=== PATIENT | male | born 1940 | race Caucasian/White ===

== ENCOUNTER 2017-04-03 20:09 | Inpatient (IN) | payer OTHER, BC ==
[~2017-04-03] VITALS: Ht 167.6 cm; Wt 73.5 kg
[~2017-04-03 20:09] MED LIST: ALENDRONATE SOD70 MG PO; ALTACE10 MG PO; ALTACE2.5 MG PO; ASPIR 8181 M1 PO; ASPIRIN81 M2 PO; CALCIUM 500 MG1 EACH PO; FORTAMET500 MG PO; I-CAPS WITH LU1 EACH PO; IRON CHEWS15 MG PO; LIPITOR80 MG PO; METFORMIN HCL500 MG PO; METOPROLOL SUCC25 MG PO; NITROSTAT0.4 MG SL; PANTOPRAZOLE SO40 MG PO; PLAVIX75 MG PO; PROTONIX IV40 MG IV; RAMIPRIL5 MG PO; RECLAST5 MG/100 M IV; TOPROL XL50 MG PO; VICODIN,LORT1 TABLET PO; VITAMIN D-3 401 EACH PO; ZETIA10 MG PO
[2017-04-03 21:18] LABS: MCH 30.2 PG (29.0-34.0); MCHC 32.1 G/DL (30.0-36.0); MCV 94.1 FL (86-99); MEAN PLAT.VOLUME 10.5 uM^3 (9.0-12.4); PLATELET COUNT 206 K/uL (156-360); RBC DIS.WIDTH-SD 51.8 % (39-53); RED BLOOD COUNT 4.57 M/uL (4.00-5.50); WHITE BLOOD COUNT 10.2 K/uL (4.1-10.2)
[2017-04-03 21:25] LABS: CHLORIDE 106 mEq/L (99-109); POTASSIUM 4.3 mEq/L (3.7-5.4); SODIUM 141 mEq/L (136-147)
[2017-04-03 21:26] LABS: GLUCOSE 208 mg/dL (70-99)
[2017-04-03 21:28] LABS: ANION GAP 14 MEQ/L (2-14)
[2017-04-03 21:30] LABS: GFR ESTIMATE (CALCULATED) 48 mL/min/
[2017-04-03 21:31] LABS: UREA NITROGEN (BUN) 35 mg/dL (9-23)
[2017-04-03 21:36] LABS: TROP-I INTERPRETATION NEGATIVE; TROPONIN-I 0.07 ng/mL (0.0-0.30)
[2017-04-03] MEDS ORDERED: BENADRYL ALLERG25 MG PO (22:11)
[2017-04-03 23:59] LABS: MAGNESIUM 1.3 mg/dL (1.3-2.7)
[2017-04-04] VITALS (7 sets, daily range): BP systolic 89–122; BP diastolic 61–86
[2017-04-04 02:13] LABS: PROTHROMBIN TIME 10.4 (9.2-11.2); PTT 24.3 (25-32)
[2017-04-04 02:48] LABS: HDL CHOLESTEROL 35 MG/DL (Desirable>=40); LDL CHOLESTEROL 76 mg/dL (Desirable<100); NON-HDL CHOLESTEROL 115 mg/dL (Desirable<160); TOTAL CHOLESTEROL 150 mg/dL (Desirable<200); TRIGLYCERIDES 196 MG/DL (Normal: <150)
[2017-04-04 05:45] LABS: TROP-I INTERPRETATION POSITIVE; TROPONIN-I 3.46 ng/mL (0.0-0.30)
[2017-04-04 05:55] LABS: HEMATOCRIT 39.4 % (38.0-50.0); MCH 30.8 PG (29.0-34.0); MCV 96.3 FL (86-99); MEAN PLAT.VOLUME 11.1 uM^3 (9.0-12.4); PLATELET COUNT 175 K/uL (156-360); RBC DIS.WIDTH-CV 15.2 % (11.8-14.6); RBC DIS.WIDTH-SD 54.2 % (39-53); RED BLOOD COUNT 4.09 M/uL (4.00-5.50); WHITE BLOOD COUNT 8.7 K/uL (4.1-10.2)
[2017-04-04 06:44] LABS: METH RESISTANT S AUREUS PCR NEGATIVE (NEGATIVE)
[2017-04-04 06:46] LABS: PROBE CHECK PASS; SPECIMEN PROCESSING CONTROL PASS
[2017-04-04 08:17] LABS: ALKALINE PHOSPHATASE 70 IU/L (3-129); ANION GAP 14 MEQ/L (2-14); CHLORIDE 108 MEQ/L (99-109); GFR ESTIMATE (CALCULATED) > 59 mL/min/; MAGNESIUM 1.3 mg/dl (1.3-2.7); POTASSIUM 4.6 MEQ/L (3.7-5.4); SAMPLE HEMOLYSIS CHECK 0; SAMPLE ICTERIC CHECK 0; SAMPLE LIPEMIA CHECK 0; SODIUM 142 MEQ/L (136-147); TOTAL BILIRUBIN 0.7 MG/DL (0.0-1.0); UREA NITROGEN (BUN) 33 mg/dL (9-23)
[2017-04-04 08:20] LABS: GLUCOSE 98 mg/dL (70-99)
[2017-04-04 13:49] LABS: TROP-I INTERPRETATION POSITIVE; TROPONIN-I 4.93 ng/mL (0.0-0.30)
[2017-04-04 19:09] LABS: TROP-I INTERPRETATION POSITIVE; TROPONIN-I 4.04 ng/mL (0.0-0.30)
[2017-04-05] VITALS (8 sets, daily range): BP systolic 100–127; BP diastolic 49–71
[2017-04-05 06:57] LABS: EOSINOPHIL (%) 0.1 % (0-5); HEMATOCRIT 38.6 % (38.0-50.0); IMMATURE GRANULOCYTE (%) 0.3 % (0.0-0.7); INSTRUMENT ABS NEUTROPHIL CT 6.6 K/uL; LYMPHOCYTE COUNT 0.6 K/uL (1.0-2.8); MCHC 31.3 G/DL (30.0-36.0); MCV 95.5 FL (86-99); MEAN PLAT.VOLUME 11.2 uM^3 (9.0-12.4); MONOCYTE (%) 2.7 % (3-12); MONOCYTE COUNT 0.2 K/uL (0-0.8); NEUTROPHIL (%) 88.3 % (45-76); NEUTROPHIL COUNT 6.6 K/uL (1.8-6.4); PLATELET COUNT 162 K/uL (156-360); RBC DIS.WIDTH-CV 14.5 % (11.8-14.6); RBC DIS.WIDTH-SD 50.6 % (39-53); RED BLOOD COUNT 4.04 M/uL (4.00-5.50); WHITE BLOOD COUNT 7.5 K/uL (4.1-10.2)
[2017-04-05 08:27] LABS: ANION GAP 11 MEQ/L (2-14); CHLORIDE 104 MEQ/L (99-109); GFR ESTIMATE (CALCULATED) 57 mL/min/; POTASSIUM 4.7 MEQ/L (3.7-5.4); SAMPLE HEMOLYSIS CHECK 0; SAMPLE ICTERIC CHECK 0; SAMPLE LIPEMIA CHECK 0; SODIUM 140 MEQ/L (136-147); UREA NITROGEN (BUN) 33 mg/dL (9-23)
[2017-04-05 08:30] LABS: GLUCOSE 165 mg/dL (70-99)
== END 2017-04-05 17:49 | disposition home health service (06) | DRG 280 ==
LOC: EME → EDBD 20:09 → EME 20:09 → EDOF 23:19 → 4WEST 23:19
PROVIDERS: Emergency Medicine; Hospitalist; Internal Medicine Cardiovascular Disease; Student in an Organized Health Care Education/Training Program
DX: I21.4 Non-ST elevation (NSTEMI) myocardial infarction (principal); J44.1 Chronic obstructive pulmonary disease with (acute) exacerbation; J44.0 Chronic obstructive pulmonary disease with (acute) lower respiratory infection; J18.9 Pneumonia, unspecified organism; I25.5 Ischemic cardiomyopathy; I25.710 Atherosclerosis of autologous vein coronary artery bypass graft(s) with unstable angina pectoris; I25.720 Atherosclerosis of autologous artery coronary artery bypass graft(s) with unstable angina pectoris; I25.110 Atherosclerotic heart disease of native coronary artery with unstable angina pectoris; I25.82 Chronic total occlusion of coronary artery; E11.9 Type 2 diabetes mellitus without complications; E78.5 Hyperlipidemia, unspecified; I10 Essential (primary) hypertension; K21.9 Gastro-esophageal reflux disease without esophagitis; I48.91 Unspecified atrial fibrillation; I25.2 Old myocardial infarction; Z87.891 Personal history of nicotine dependence; Z95.1 Presence of aortocoronary bypass graft; Z79.02 Long term (current) use of antithrombotics/antiplatelets; Z79.82 Long term (current) use of aspirin; Z95.5 Presence of coronary angioplasty implant and graft
CPT/HCPCS: 71020; 80048; 80053; 80061; 82948; 83735; 83880; 84100; 84443; 84484; 85025; 85027; 85610; 85730; 87641; 93005; 94799; 99281; 99285; C1760; C1769; C1887; C1894; J0696; J1644; J2250; J2270; J2405; J2920; J2930; J3010; J7040; J7050

== ENCOUNTER 2017-04-27 21:11 | Inpatient (IN) | payer OTHER, BC ==
[~2017-04-27] VITALS: Ht 167.6 cm; Wt 76.4 kg
[~2017-04-27 21:11] MED LIST changes: +BENADRYL ALLERG25 MG PO
[2017-04-27 21:49] LABS: HEMATOCRIT 40.5 % (38.0-50.0); MCH 30.7 PG (29.0-34.0); MCHC 32.8 G/DL (30.0-36.0); MCV 93.5 FL (86-99); PLATELET COUNT 207 K/uL (156-360); RBC DIS.WIDTH-CV 14.7 % (11.8-14.6); RBC DIS.WIDTH-SD 50.9 % (39-53); RED BLOOD COUNT 4.33 M/uL (4.00-5.50); WHITE BLOOD COUNT 9.5 K/uL (4.1-10.2)
[2017-04-27 22:01] LABS: CHLORIDE 108 mEq/L (99-109); POTASSIUM 5.1 mEq/L (3.7-5.4); SODIUM 139 mEq/L (136-147)
[2017-04-27 22:02] LABS: GLUCOSE 166 mg/dL (70-99)
[2017-04-27 22:04] LABS: ANION GAP 11 MEQ/L (2-14)
[2017-04-27 22:06] LABS: GFR ESTIMATE (CALCULATED) 42 mL/min/
[2017-04-27 22:07] LABS: UREA NITROGEN (BUN) 22 mg/dL (9-23)
[2017-04-27 22:15] LABS: TROP-I INTERPRETATION NEGATIVE; TROPONIN-I 0.04 ng/mL (0.0-0.30)
[2017-04-28 04:18] LABS: TROP-I INTERPRETATION INDETERMINATE; TROPONIN-I 0.53 ng/mL (0.0-0.30)
[2017-04-28 07:22] LABS: ADD MIUA? YES; BILIRUBIN NEGATIVE; BLOOD NEGATIVE; COLOR YELLOW ((YELLOW)); GLUCOSE (STRIP) NEGATIVE; KETONES NEGATIVE; LEUKOCYTES LARGE; NITRITE NEGATIVE; PROTEIN (STRIP) 30; SPECIFIC GRAVITY 1.012 (1.000-1.030); UROBILINOGEN 0.2 MG/DL (0.2-1.0)
[2017-04-28 07:32] LABS: BACTERIA RARE /HPF; EPITHELIAL CELLS RARE /HPF; HYALINE CASTS 0-5 /LPF; MUCUS TRACE /LPF; RED BLOOD CELLS 0-5 /HPF (0-5); UCUL ADDED? NO; WHITE BLOOD CELLS 20-30 /HPF (0-5)
[2017-04-28 10:08] LABS: HEMATOCRIT 44.1 % (38.0-50.0); MCH 30.4 PG (29.0-34.0); MCHC 31.7 G/DL (30.0-36.0); MCV 95.9 FL (86-99); PLATELET COUNT 222 K/uL (156-360); RBC DIS.WIDTH-CV 15.1 % (11.8-14.6); RBC DIS.WIDTH-SD 52.4 % (39-53); WHITE BLOOD COUNT 9.2 K/uL (4.1-10.2)
[2017-04-28 10:25] LABS: CHLORIDE 106 mEq/L (99-109); POTASSIUM 4.8 mEq/L (3.7-5.4); SODIUM 141 mEq/L (136-147)
[2017-04-28 10:27] LABS: GLUCOSE 162 mg/dL (70-99)
[2017-04-28 10:28] LABS: ANION GAP 12 MEQ/L (2-14)
[2017-04-28 10:29] LABS: TOTAL BILIRUBIN 0.7 mg/dL (0.0-1.0)
[2017-04-28 10:31] LABS: ALKALINE PHOSPHATASE 87 IU/L (3-129); GFR ESTIMATE (CALCULATED) 48 mL/min/
[2017-04-28 10:32] LABS: UREA NITROGEN (BUN) 24 mg/dL (9-23)
[2017-04-28 10:46] LABS: TROP-I INTERPRETATION POSITIVE; TROPONIN-I 0.86 ng/mL (0.0-0.30)
[2017-04-28] MEDS ORDERED: FERROUS SULFAT325 MG PO (11:57)
[2017-04-28] MEDS ORDERED: SUPER CALCIUM600 MG PO (11:58)
[2017-04-28] MEDS ORDERED: VITAMIN D31000 UNI2 PO (11:58)
[2017-04-28] MEDS ORDERED: I-CAPS WITH LU1 EACH PO (12:00)
[2017-04-28] MEDS ORDERED: NITROSTAT0.4 MG SL (12:03)
[2017-04-28 12:24] LABS: Estimated Average Glucose 143 mg/dL (70-123); HEMOGLOBIN A1c (GLYCOHEMOGLOB) 6.6 % HGB (Below 5.7)
[2017-04-28 13:45] VITALS: BP 113/60
[2017-04-28 15:36] VITALS: BP 109/64
[2017-04-28 16:34] LABS: INTER. NORMALIZED RATIO 1.1; PROTHROMBIN TIME 11.3 (9.2-11.2)
[2017-04-28 17:31] LABS: POINT-OF-CARE USER ID NUTSLF44
[2017-04-28 19:15] VITALS: BP 114/67
[2017-04-28 23:00] VITALS: BP 103/64
[2017-04-29 04:00] VITALS: BP 97/57
[2017-04-29 05:54] LABS: ANION GAP 9 MEQ/L (2-14); CHLORIDE 106 MEQ/L (99-109); GFR ESTIMATE (CALCULATED) 52 mL/min/; SAMPLE HEMOLYSIS CHECK 0; SAMPLE ICTERIC CHECK 0; SAMPLE LIPEMIA CHECK 0; SODIUM 140 MEQ/L (136-147); UREA NITROGEN (BUN) 27 mg/dL (9-23)
[2017-04-29 05:57] LABS: GLUCOSE 104 mg/dL (70-99)
[2017-04-29 06:26] LABS: BASOPHIL COUNT 0.1 K/uL (0-0.1); EOSINOPHIL (%) 5.8 % (0-5); EOSINOPHIL COUNT 0.4 K/uL (0-0.3); HEMATOCRIT 36.1 % (38.0-50.0); IMMATURE GRANULOCYTE (%) 0.3 % (0.0-0.7); INSTRUMENT ABS NEUTROPHIL CT 4.2 K/uL; LYMPHOCYTE COUNT 1.5 K/uL (1.0-2.8); MCH 31.3 PG (29.0-34.0); MCHC 33.2 G/DL (30.0-36.0); MEAN PLAT.VOLUME 11.5 uM^3 (9.0-12.4); MONOCYTE (%) 8.1 % (3-12); MONOCYTE COUNT 0.6 K/uL (0-0.8); NEUTROPHIL (%) 62.5 % (45-76); NEUTROPHIL COUNT 4.2 K/uL (1.8-6.4); PLATELET COUNT 168 K/uL (156-360); RBC DIS.WIDTH-SD 51.6 % (39-53); RED BLOOD COUNT 3.84 M/uL (4.00-5.50); WHITE BLOOD COUNT 6.8 K/uL (4.1-10.2)
[2017-04-29 07:48] VITALS: BP 95/51
[2017-04-29 11:37] VITALS: BP 92/56
[2017-04-29 16:07] VITALS: BP 96/64
[2017-04-29 19:00] VITALS: BP 91/59
[2017-04-29 21:00] LABS: POINT-OF-CARE METER ID UU13113781
[2017-04-29 23:00] VITALS: BP 111/81
[2017-04-30 03:30] VITALS: BP 91/55
[2017-04-30 07:17] LABS: HEMATOCRIT 40.4 % (38.0-50.0); MCH 30.3 PG (29.0-34.0); MCHC 32.7 G/DL (30.0-36.0); MCV 92.9 FL (86-99); MEAN PLAT.VOLUME 10.7 uM^3 (9.0-12.4); PLATELET COUNT 190 K/uL (156-360); RBC DIS.WIDTH-CV 14.6 % (11.8-14.6); RBC DIS.WIDTH-SD 50.5 % (39-53); RED BLOOD COUNT 4.35 M/uL (4.00-5.50); WHITE BLOOD COUNT 7.3 K/uL (4.1-10.2)
[2017-04-30 07:25] VITALS: BP 94/60
[2017-04-30 07:58] LABS: TROP-I INTERPRETATION NEGATIVE; TROPONIN-I 0.28 ng/mL (0.0-0.30)
[2017-04-30 10:01] LABS: ANION GAP 11 MEQ/L (2-14); CHLORIDE 104 MEQ/L (99-109); GFR ESTIMATE (CALCULATED) 52 mL/min/; GLUCOSE 112 mg/dL (70-99); POTASSIUM 4.4 MEQ/L (3.7-5.4); SAMPLE HEMOLYSIS CHECK 0; SAMPLE ICTERIC CHECK 0; SAMPLE LIPEMIA CHECK 0; SODIUM 140 MEQ/L (136-147); UREA NITROGEN (BUN) 26 mg/dL (9-23)
[2017-04-30 11:28] LABS: POINT-OF-CARE METER ID UU13113781
[2017-04-30 11:49] VITALS: BP 96/53
[2017-04-30] MEDS ORDERED: LASIX20 MG PO (11:49)
[2017-04-30] MEDS ORDERED: RANEXA500 MG PO (11:49)
== END 2017-04-30 14:16 | disposition home health service (06) | DRG 280 ==
LOC: EME 21:11 → EDOF 04-28 01:42 → 4EAST 04-28 01:42
PROVIDERS: Emergency Medicine; Hospitalist; Internal Medicine; Internal Medicine Cardiovascular Disease
DX: I21.4 Non-ST elevation (NSTEMI) myocardial infarction (principal); I11.0 Hypertensive heart disease with heart failure; I50.23 Acute on chronic systolic (congestive) heart failure; I25.110 Atherosclerotic heart disease of native coronary artery with unstable angina pectoris; N17.9 Acute kidney failure, unspecified; E11.9 Type 2 diabetes mellitus without complications; E78.5 Hyperlipidemia, unspecified; I25.5 Ischemic cardiomyopathy; I45.9 Conduction disorder, unspecified; I47.9 Paroxysmal tachycardia, unspecified; K21.9 Gastro-esophageal reflux disease without esophagitis; I48.0 Paroxysmal atrial fibrillation; Z85.46 Personal history of malignant neoplasm of prostate; I25.2 Old myocardial infarction; Z79.4 Long term (current) use of insulin; Z87.891 Personal history of nicotine dependence; Z95.1 Presence of aortocoronary bypass graft; Z95.5 Presence of coronary angioplasty implant and graft; Z79.02 Long term (current) use of antithrombotics/antiplatelets; Z79.82 Long term (current) use of aspirin
CPT/HCPCS: 71010; 71250; 80048; 80053; 81003; 82948; 83036; 83880; 84484; 85025; 85027; 85610; 85730; 93005; 94640; 99202; 99281; 99285; J1644; J1815; J1940; J7040